=== PATIENT | male | born 1940 | race Caucasian/White ===

== ENCOUNTER 2021-07-12 16:59 | Inpatient (IN) | payer OTHER ==
[2021-07-12 19:03] LABS: HEMATOCRIT 32.7 % (35.4-49); HEMOGLOBIN 11.3 G/dL (11.7-16.9); MCH 33.3 pg (25.7-33.7); MCHC 34.6 g/dl (32.0-35.9); MEAN CELL VOLUME 96.1 fl (80-96); MEAN PLT VOLUME 7.5 fl (7.5-11.1); PLATELET COUNT 295.7 10^3/uL (134-434); RDW 15.1 % (11.9-15.9); WHITE BLOOD COUNT 7.8 10^3/uL (4.0-10.8)
[2021-07-12 19:07] LABS: ADD RBC MORPHOLOGY YES
[2021-07-12 19:12] LABS: ALBUMIN 3.9 g/dl (3.4-5.0); BILIRUBIN,TOTAL 0.7 mg/dl (0.2-1); CALCIUM 9.4 mg/dl (8.5-10); CREATININE 0.9 mg/dl (0.55-1.3); TOT PROT 6.7 g/dl (6.4-8.2)
[2021-07-12] MEDS ORDERED: SODIUM CHLORIDE 1,000 ML IV ONE (20:53)
[2021-07-12] MEDS ORDERED: POLYETHYLENE GLYCOL (HEALTHYLAX) 3350 17 GM PACKET PO PRN (21:01)
[2021-07-12] MEDS ORDERED: ACETAMINOPHEN 325 MG TABLET (FP) PO PRN (21:01)
[2021-07-12] MEDS ORDERED: SODIUM CHLORIDE 500 ML IV STA (21:05)
[2021-07-12 21:08] LABS: PLATELET ESTIMATE ADEQUATE
[2021-07-12] MEDS ORDERED: SODIUM CHLORIDE 1,000 ML IV SCH (21:15)
[2021-07-12 22:24] VITALS: BMI 24.0
[2021-07-12] MEDS ORDERED: traZODone HCL 50 MG TABLET (FP) PO PRN (23:44)
[2021-07-13] MEDS: LATANOPROST 0.005% OPHTH SOLN 2.5ML BOTTLE OU SCH ×2 (00:20→21:15)
[2021-07-13] MEDS: LORazepam 0.5 MG TABLET PO PRN (01:14)
[2021-07-13 01:57] LABS: CALCIUM 8.6 mg/dL (8.5-10.1)
[2021-07-13 01:58] LABS: BLOOD UREA NITROGEN 13.8 mg/dL (7-18)
[2021-07-13 02:01] LABS: CREATININE 0.8 mg/dL (0.55-1.3)
[2021-07-13 04:57] LABS: BASO % 0.8 % (0-2.0); EOS % 0.9 % (0-4.5); HEMATOCRIT 31.9 % (35.4-49); HEMOGLOBIN 11.1 GM/dL (11.7-16.9); LYMPH % 31.8 % (8-40); MCH 32.8 pg (25.7-33.7); MCHC 34.9 g/dl (32.0-35.9); MEAN CELL VOLUME 94.1 fl (80-96); MEAN PLT VOLUME 7.7 fl (7.5-11.1); MONO % 12.3 % (3.8-10.2); NEUT % 54.2 % (42.8-82.8); PLATELET COUNT 272 10^3/uL (134-434); RBC 3.39 M/mm3 (4.00-5.60)
[2021-07-13 05:20] LABS: CALCIUM 8.8 mg/dL (8.5-10.1)
[2021-07-13 05:21] LABS: BLOOD UREA NITROGEN 10.9 mg/dL (7-18)
[2021-07-13 05:24] LABS: CREATININE 0.8 mg/dL (0.55-1.3)
[2021-07-13] MEDS: BICALUTAMIDE 50 MG TABLET (FP) PO SCH (09:26)
[2021-07-13] MEDS ORDERED: traZODone HCL 50 MG TABLET (FP) PO SCH (10:00)
[2021-07-13] MEDS ORDERED: SODIUM CHLORIDE 500 ML IV STA (11:15)
[2021-07-13 12:26] LABS: CALCIUM 9.6 mg/dl (8.5-10); CREATININE 0.8 mg/dl (0.55-1.3)
[2021-07-13] MEDS ORDERED: SODIUM CHLORIDE 1,000 ML IV SCH (13:15)
[2021-07-13] MEDS: HEPARIN NA (PORCINE) 5,000 UNITS/ML 1ML VIAL SQ SCH ×2 (16:35→21:14)
[2021-07-13] MEDS: SODIUM CHLORIDE 1 GM TABLET PO SCH ×2 (17:04→21:15)
[2021-07-14] MEDS: LORazepam 0.5 MG TABLET PO PRN (00:59)
[2021-07-14] MEDS: HEPARIN NA (PORCINE) 5,000 UNITS/ML 1ML VIAL SQ SCH (06:28)
[2021-07-14 08:11] LABS: ALBUMIN 3.6 g/dl (3.4-5.0); BILIRUBIN,TOTAL 1.1 mg/dl (0.2-1); CALCIUM 9.1 mg/dl (8.5-10); CREATININE 0.8 mg/dl (0.55-1.3); MAGNESIUM 1.9 mg/dL (1.8-2.4); TOT PROT 6.1 g/dl (6.4-8.2)
[2021-07-14 08:33] LABS: HEMATOCRIT 32.9 % (35.4-49); HEMOGLOBIN 11.4 G/dL (11.7-16.9); MCH 33.4 pg (25.7-33.7); MCHC 34.7 g/dl (32.0-35.9); MEAN CELL VOLUME 96.3 fl (80-96); PLATELET COUNT 306.5 10^3/uL (134-434); RBC 3.42 10^6/uL (4.00-5.60); RDW 15.7 % (11.9-15.9); WHITE BLOOD COUNT 7.3 10^3/uL (4.0-10.8)
[2021-07-14] MEDS: BICALUTAMIDE 50 MG TABLET (FP) PO SCH (09:15)
[2021-07-14] MEDS: SODIUM CHLORIDE 1 GM TABLET PO SCH (09:15)
[2021-07-14 10:09] VITALS: BP 130/77; PULSE 83; TEMP 98.3
[2021-07-14 10:30] LABS: ADD RBC MORPHOLOGY YES; PLATELET ESTIMATE ADEQUATE
[2021-07-14 10:32] LABS: ANISOCYTOSIS 1+
== END 2021-07-14 13:43 | disposition home or self-care (01) | DRG 641 ==
LOC: FER 16:59 → FM/S 19:39 → INTOOBSV 19:39 → FM/S 21:18 → OBSVTOIN 07-13 13:16
PROVIDERS: ADMIT Hospitalist; ATTEND Nurse Practitioner Acute Care
DX: E87.1 Hypo-osmolality and hyponatremia (principal); C91.10 Chronic lymphocytic leukemia of B-cell type not having achieved remission; I10 Essential (primary) hypertension; E78.5 Hyperlipidemia, unspecified; F41.9 Anxiety disorder, unspecified; E87.6 Hypokalemia; C61 Malignant neoplasm of prostate; T43.225A Adverse effect of selective serotonin reuptake inhibitors, initial encounter; Y92.89 Other specified places as the place of occurrence of the external cause
CPT/HCPCS: 36415; 71045-TC-FY; 76775-TC; 80048; 80053; 81003; 81015; 82533; 82570; 83735; 83935; 84300; 84443; 85025; 93005; 99285-25; C9803-CS; G0378; U0003; U0005

== ENCOUNTER 2021-10-23 20:55 | Emergency (ER) | payer OTHER ==
[2021-10-23 21:14] VITALS: BMI 25.7
[2021-10-23 21:22] VITALS: BP 151/83; PULSE 88; RESP 18; TEMP 99.3
== END 2021-10-23 22:05 | disposition home or self-care (01) ==
LOC: FER 20:55
DX: N30.01 Acute cystitis with hematuria (principal); R33.9 Retention of urine, unspecified
CPT/HCPCS: 81003; 81015; 87086; 99283-25